=== PATIENT | female | born 1950 | race Caucasian/White ===

== ENCOUNTER 2025-02-27 21:05 | Emergency (ER) | payer MEDICARE ==
[2025-02-27 22:20] LABS: A/G RATIO 0.6 (1.2-2.2); ALANINE AMINOTRANSFERASE,ALT 42 U/L (12-78); ASPARTATE AMNIOTRANSFERASE,AST 30 U/L (15-37); BILIRUBIN TOTAL 0.2 mg/dL (0.2-1.0); BLOOD UREA NITROGEN,BUN 22 mg/dL (7-18); CARBON DIOXIDE,CO2 26 mmol/L (21-32); CHLORIDE,CL 103 mmol/L (100-108); CREATININE 0.9 mg/dL (0.6-1.0); ESTIMATED GFR 66 mL/min (>60); GLUCOSE RANDOM 148 mg/dL (74-106); POTASSIUM,K 3.8 mmol/L (3.6-5.2); PROTEIN TOTAL,TP 7.3 g/dL (6.4-8.2); SODIUM,NA 141 mmol/L (140-148)
[2025-02-27 23:37] LABS: GLUCOSE,URINE NEGATIVE (NEGATIVE); OCCULT BLOOD,URINE NEGATIVE (NEGATIVE)
[2025-02-27 23:43] LABS: APPEARANCE,URINE SLIGHTLY CLOUDY (CLEAR); EPITHELIAL CELLS,URINE MODERATE
[2025-02-28] MEDS: Nitrofurantoin Monohydrate/Macrocrystalline 100 MG Cap PO ONE ×2 (01:23→08:20)
== END 2025-02-28 09:00 | disposition home or self-care (01) ==
LOC: JP.ED 21:05
DX: G40.A09 Absence epileptic syndrome, not intractable, without status epilepticus (principal); N30.00 Acute cystitis without hematuria; Z88.2 Allergy status to sulfonamides; Z79.51 Long term (current) use of inhaled steroids; Z79.82 Long term (current) use of aspirin; Z79.899 Other long term (current) drug therapy; Z79.01 Long term (current) use of anticoagulants
CPT/HCPCS: 36415; 80053; 81001; 87086; 87088; 87186; 99283; 99285; A9270

== ENCOUNTER 2025-03-10 09:58 | Emergency (ER) | payer MEDICARE ==
[2025-03-10 11:01] LABS: APPEARANCE,URINE CLEAR (CLEAR); GLUCOSE,URINE NEGATIVE (NEGATIVE); OCCULT BLOOD,URINE TRACE-INTACT (NEGATIVE)
[2025-03-10 11:21] LABS: EPITHELIAL CELLS,URINE FEW
== END 2025-03-10 12:42 | disposition home or self-care (01) ==
LOC: MERGE 09:58 → JP.ED 09:58
DX: N30.00 Acute cystitis without hematuria (principal); I48.91 Unspecified atrial fibrillation; Z79.899 Other long term (current) drug therapy; Z79.01 Long term (current) use of anticoagulants
CPT/HCPCS: 81001; 87086; 99283

== ENCOUNTER 2025-08-20 03:25 | Inpatient (IN) | payer MEDICARE ==
[2025-08-20 03:53] LABS: APPEARANCE,URINE CLEAR (CLEAR); GLUCOSE,URINE NEGATIVE (NEGATIVE); OCCULT BLOOD,URINE NEGATIVE (NEGATIVE)
[2025-08-20 04:01] LABS: SQUAMOUS EPITHELIAL CELLS,UR RARE /HPF; UROTHELIAL CELLS,URINE NOT SEEN /HPF
[2025-08-20 05:18] LABS: BASOPHILS ABSOLUTE AUTO 0.04 K/uL (0.00-0.10); BASOPHILS PERCENT AUTO 0.5 % (0.1-1.3); EOSINOPHILS ABSOLUTE AUTO 0.08 K/uL (0.00-0.40); EOSINOPHILS PERCENT AUTO 1.0 % (0.0-5.4); IMMATURE GRAN ABSOLUTE AUTO 0.03 K/uL (0.00-0.23); IMMATURE GRAN PERCENT AUTO 0.4 % (0.0-0.7); LYMPHOCYTES ABSOLUTE AUTO 0.42 K/uL (0.8-3.3); LYMPHOCYTES PERCENT AUTO 5.5 % (11.4-47.7); MONOCYTES ABSOLUTE AUTO 0.80 K/uL (0.20-0.90); MONOCYTES PERCENT AUTO 10.5 % (3.3-12.6); NEUTROPHILS ABSOLUTE AUTO 6.28 K/uL (1.0-7.6); NEUTROPHILS PERCENT AUTO 82.1 % (40.0-78.1); PLATELET COUNT,PLT 204 K/uL (130-375); RED BLOOD CELL COUNT 4.49 M/uL (3.77-5.24); WHITE BLOOD CELL COUNT,WBC 7.7 K/uL (3.2-11.0)
[2025-08-20 05:32] LABS: INR 2.4
[2025-08-20] MEDS: Sodium Chloride 0.9% 10 ML Syringe FLUSH PRN (05:35)
[2025-08-20 05:37] LABS: A/G RATIO 0.7 (1.2-2.2); ALANINE AMINOTRANSFERASE,ALT 37 U/L (12-78); ASPARTATE AMNIOTRANSFERASE,AST 39 U/L (15-37); BILIRUBIN TOTAL 0.4 mg/dL (0.2-1.0); BLOOD UREA NITROGEN,BUN 19 mg/dL (7-18); CARBON DIOXIDE,CO2 27 mmol/L (21-32); CHLORIDE,CL 104 mmol/L (100-108); CREATININE 1.0 mg/dL (0.6-1.0); EST CRCL DRUG DOSING (CG) 42.39 mL/min; ESTIMATED GFR 58 mL/min (>60); GLUCOSE RANDOM 174 mg/dL (74-106); POTASSIUM,K 3.7 mmol/L (3.6-5.2); PROTEIN TOTAL,TP 7.0 g/dL (6.4-8.2); SODIUM,NA 140 mmol/L (140-148)
[2025-08-20 05:42] LABS: LACTIC ACID 1.8 mmol/L (0.4-2.0)
[2025-08-20 06:19] LABS: CORONAVIRUS COVID-19 NAA NEGATIVE (NEGATIVE); INFLUENZA A NAA NEGATIVE (NEGATIVE); INFLUENZA B NAA NEGATIVE (NEGATIVE); RESPIRATORY SYNCYTIAL VIR NAA NEGATIVE (NEGATIVE)
[2025-08-20] MEDS ORDERED: Albuterol 0.083% 2.5 MG/3 ML Neb Soln NEB PRN (09:28)
[2025-08-20] MEDS ORDERED: Magnesium Hydroxide 400 MG/5 ML Susp 30 ML Cup PO PRN (09:28)
[2025-08-20] MEDS ORDERED: guaiFENesin/Dextromethorphan 100-10 MG/5 ML Soln 10 ML Cup PO PRN (09:28)
[2025-08-20] MEDS ORDERED: Sennosides/Docusate Sodium 50-8.6 MG Tab PO PRN (09:28)
[2025-08-20] MEDS ORDERED: Ondansetron 4 MG Tab.DIS PO PRN (09:28)
[2025-08-20] MEDS ORDERED: Ondansetron 4 MG/2 ML SDV IV PRN (09:28)
[2025-08-20] MEDS ORDERED: Nystatin Topical Powder 15 GM Bottle TOP SCH (09:29)
[2025-08-20] MEDS: Lactobacillus Rhamnosus GG (Probiotic) Cap PO SCH (10:50)
[2025-08-20] MEDS: Nystatin Topical Powder 15 GM Bottle TOP SCH (10:51)
[2025-08-20] MEDS: Ketorolac 15 MG/ML SDV IVPUSH ONE (16:14)
[2025-08-20] MEDS: Phenytoin 100 MG Cap.ER PO SCH (20:15)
[2025-08-21 06:15] LABS: PLATELET COUNT,PLT 174.0 K/uL (130-375); RED BLOOD CELL COUNT 3.83 M/uL (3.77-5.24); WHITE BLOOD CELL COUNT,WBC 4.8 K/uL (3.2-11.0)
[2025-08-21 06:25] LABS: BLOOD UREA NITROGEN,BUN 20.0 mg/dL (7-18); CARBON DIOXIDE,CO2 25.0 mmol/L (21-32); CHLORIDE,CL 108.0 mmol/L (100-108); CREATININE 0.9 mg/dL (0.6-1.0); EST CRCL DRUG DOSING (CG) 47.1 mL/min; ESTIMATED GFR 66.0 mL/min (>60); GLUCOSE RANDOM 127.0 mg/dL (74-106); POTASSIUM,K 3.5 mmol/L (3.6-5.2); SODIUM,NA 141.0 mmol/L (140-148)
[2025-08-21 06:26] LABS: INR 2.7
[2025-08-21] MEDS: Codeine/guaiFENesin 10-100 MG/5 ML Syrup 5 ML Cup PO PRN (12:36)
[2025-08-21] MEDS: Potassium Chloride 20 MEQ Tab.ER PO ONE (14:45)
[2025-08-22 06:25] LABS: INR 3.5
[2025-08-22 06:28] LABS: BLOOD UREA NITROGEN,BUN 20.0 mg/dL (7-18); CARBON DIOXIDE,CO2 26.0 mmol/L (21-32); CHLORIDE,CL 108.0 mmol/L (100-108); CREATININE 0.8 mg/dL (0.6-1.0); EST CRCL DRUG DOSING (CG) 52.99 mL/min; ESTIMATED GFR 76.0 mL/min (>60); GLUCOSE RANDOM 143.0 mg/dL (74-106); POTASSIUM,K 3.9 mmol/L (3.6-5.2); SODIUM,NA 140.0 mmol/L (140-148)
== END 2025-08-22 10:57 | disposition home or self-care (01) | DRG 193 ==
LOC: JP.ED 03:25 → JP.MS 08:39
PROVIDERS: ADMIT Internal Medicine; ATTEND Internal Medicine
DX: J18.9 Pneumonia, unspecified organism (principal); J96.01 Acute respiratory failure with hypoxia; Z68.43 Body mass index [BMI] 50.0-59.9, adult; Z66 Do not resuscitate; G40.909 Epilepsy, unspecified, not intractable, without status epilepticus; M19.90 Unspecified osteoarthritis, unspecified site; H54.7 Unspecified visual loss; I48.91 Unspecified atrial fibrillation; I11.0 Hypertensive heart disease with heart failure; I50.9 Heart failure, unspecified; K59.09 Other constipation; K21.9 Gastro-esophageal reflux disease without esophagitis; I89.0 Lymphedema, not elsewhere classified; I48.0 Paroxysmal atrial fibrillation; E66.9 Obesity, unspecified; Z90.89 Acquired absence of other organs; Z98.891 History of uterine scar from previous surgery; Z88.2 Allergy status to sulfonamides; Z79.82 Long term (current) use of aspirin; Z79.51 Long term (current) use of inhaled steroids; Z79.899 Other long term (current) drug therapy; Z79.01 Long term (current) use of anticoagulants; Z90.710 Acquired absence of both cervix and uterus; Z87.440 Personal history of urinary (tract) infections
CPT/HCPCS: 36415; 70450; 70486; 71045 ×2; 80053; 81001; 83605; 85025; 85610; 87040 ×2; 87086; 87637; 94640; 96361; 96365; 96367; 99285; A9270 ×2; J0696; J1271; J7030 ×2; 80048; 85027; 99223; 99232; 99238; J1885